=== PATIENT | female | born 1960 | race Caucasian/White ===

== ENCOUNTER 2021-01-31 08:48 | Day surgery (SDC) | payer MEDICAID, SELFPAY ==
[~2021-01-31] VITALS: Ht 157.5 cm; Wt 74.8 kg
[2021-01-31] MEDS ORDERED: DIPHENHYDRAMINE INJ 50 MG/ML VIAL ONE (09:02)
[2021-01-31] MEDS: MIDAZOLAM HCL 5 MG/5 ML VIAL ONE ×2 (10:46→10:48)
[2021-01-31 13:57] VITALS: BP_SYST 129
== END 2021-01-31 12:20 | disposition home or self-care (01) ==
LOC: SMU 08:48 → SDS 08:48
PROVIDERS: ATTEND Internal Medicine
DX: M51.16 Intervertebral disc disorders with radiculopathy, lumbar region (principal); G56.01 Carpal tunnel syndrome, right upper limb; G89.4 Chronic pain syndrome; F32.9 Major depressive disorder, single episode, unspecified; Z20.828 Contact with and (suspected) exposure to other viral communicable diseases; Z79.899 Other long term (current) drug therapy
CPT/HCPCS: 62323; J1200; J2250; U0003; 76000

== ENCOUNTER 2021-05-18 07:57 | Day surgery (SDC) | payer MEDICAID, SELFPAY ==
[~2021-05-18] VITALS: Ht 157.5 cm; Wt 74.4 kg
[2021-05-18] MEDS ORDERED: DIPHENHYDRAMINE INJ 50 MG/ML VIAL ONE (09:05)
[2021-05-18] MEDS ORDERED: MIDAZOLAM HCL 5 MG/5 ML VIAL ONE (09:05)
[2021-05-18 12:43] VITALS: BP_SYST 121
== END 2021-05-18 12:55 | disposition home or self-care (01) ==
LOC: SDS 07:57 → SMU 07:58 → SDS 12:55
PROVIDERS: ATTEND Internal Medicine
DX: M51.16 Intervertebral disc disorders with radiculopathy, lumbar region (principal); M51.9 Unspecified thoracic, thoracolumbar and lumbosacral intervertebral disc disorder; G89.4 Chronic pain syndrome; F32.9 Major depressive disorder, single episode, unspecified; Z79.899 Other long term (current) drug therapy; Z20.822 Contact with and (suspected) exposure to COVID-19
CPT/HCPCS: 36415; 62323; 87426; J1200; J2250; 76000